=== PATIENT | male | born 1975 | race African-American/Black ===

== ENCOUNTER 2020-12-07 13:55 | Emergency (ER) | payer MEDICAID ==
[~2020-12-07] VITALS: Ht 170.2 cm; Wt 102.0 kg
[~2020-12-07 13:55] MED LIST: CLIN-116 MT; IBUP-2029 MT
[2020-12-07 13:58] VITALS: BP 140/85
[2020-12-07] MEDS ORDERED: MUPI1OIN4 TP (14:21)
== END 2020-12-07 14:41 | disposition home or self-care (01) ==
LOC: ER 14:36
DX: L73.9 Follicular disorder, unspecified (principal); L30.9 Dermatitis, unspecified; Z98.890 Other specified postprocedural states
CPT/HCPCS: 99281; Z7610

== ENCOUNTER 2021-08-23 18:56 | Emergency (ER) | payer MEDICAID ==
[~2021-08-23] VITALS: Ht 170.2 cm; Wt 109.0 kg
[~2021-08-23 18:56] MED LIST changes: +MUPI1OIN4 TP
[2021-08-23 19:04] VITALS: BP 115/72
== END 2021-08-23 19:17 | disposition home or self-care (01) ==
LOC: ER 18:56
DX: Z48.02 Encounter for removal of sutures (principal)
CPT/HCPCS: 99281